=== PATIENT | female | born 1955 | race Caucasian/White ===

== ENCOUNTER → 2024-04-08 12:04 | Outpatient (REF) | payer BC, MEDICARE, SELFPAY | LOC: WDC 12:04 | PROVIDERS: ATTENDING PHYSICIAN Student in an Organized Health Care Education/Training Program | DX: Z12.31 Encounter for screening mammogram for malignant neoplasm of breast (principal) | CPT/HCPCS: 77063; 77067 ==

== ENCOUNTER → 2024-08-10 20:40 | Outpatient (REF) | payer BC, SELFPAY | LOC: MRI 20:40 | PROVIDERS: ATTENDING PHYSICIAN Physical Medicine & Rehabilitation; FAMILY PHYSICIAN Nurse Practitioner Family | DX: M54.16 Radiculopathy, lumbar region (principal); M25.552 Pain in left hip | CPT/HCPCS: 72148; 73502 ==

== ENCOUNTER → 2024-08-26 10:18 | Outpatient (REF) | payer BC, SELFPAY | LOC: PAVMRI 10:18 | PROVIDERS: ATTENDING PHYSICIAN Surgery | DX: Q44.5 Other congenital malformations of bile ducts (principal); K80.62 Calculus of gallbladder and bile duct with acute cholecystitis without obstruction | CPT/HCPCS: 74181 ==

== ENCOUNTER → 2025-03-05 14:14 | Outpatient (REF) | payer BC, SELFPAY | LOC: HWRCS 14:14 | PROVIDERS: ATTENDING PHYSICIAN Internal Medicine Cardiovascular Disease; FAMILY PHYSICIAN Nurse Practitioner Family | DX: R94.31 Abnormal electrocardiogram [ECG] [EKG] (principal) | CPT/HCPCS: 93306 ==

== ENCOUNTER → 2025-04-14 12:10 | Outpatient (REF) | payer BC, SELFPAY | LOC: WDC 12:10 | PROVIDERS: ATTENDING PHYSICIAN Obstetrics & Gynecology Gynecology; FAMILY PHYSICIAN Nurse Practitioner Family | DX: Z12.31 Encounter for screening mammogram for malignant neoplasm of breast (principal) | CPT/HCPCS: 77063; 77067 ==